=== PATIENT | male | born 1945 | race Caucasian/White ===

== ENCOUNTER → 2016-08-26 | Outpatient (REF) ==
[~2016-08-26] MED LIST: AMARYL1 MG PO; ASPI325T6 PO; ASPIRIN 32325 MG/TAB PO; ASPIRIN 81M81 MG/TA2 PO; ASPIRIN E.C. 8181 MG PO; CASODEX 50MG TA50 MG PO; CO Q-1010 MG PO; DUO-KAPS1 CAP PO; EPA/GLA1 SGL PO; FERROUS SU325 MG/TAB PO; FOLIC ACID0.4 MG PO; GERITOL COMPLET1 TAB PO; GLUCOPHAGE500 MG/TAB PO; IMDUR 30MG30 MG/TAB PO; LIPITOR 80MG80 MG PO; LOPRESSOR 225 MG/TAB PO; NITROSTAT0.4 MG/TAB SL; NORCO 325 MG-7.1 TAB PO; NORVASC2.5 MG PO; PLAVIX 75MG TAB75 MG PO; PROTONIX 40MG T40 MG PO; ROXICODONE 55 MG/TAB PO; TOPROL XL 25MG25 MG PO; VITAMIN C PURE500 MG PO; ZESTRIL 5MG5 MG PO
== END ==
LOC: ZLAB.WCH 10:12
DX: Z01.89 Encounter for other specified special examinations (principal)
CPT/HCPCS: G0103

== ENCOUNTER → 2016-10-09 | Outpatient (REF) | LOC: ZLAB.WCH 10:33 | DX: Z01.89 Encounter for other specified special examinations (principal) | CPT/HCPCS: G0103 ==

== ENCOUNTER → 2016-12-09 | Outpatient (REF) | LOC: ZLAB.WCH 13:19 | DX: Z01.89 Encounter for other specified special examinations (principal) | CPT/HCPCS: G0103 ==

== ENCOUNTER 2017-03-27 17:14 | Observation (INO) | payer MEDICARE, BC ==
[~2017-03-27] VITALS: Ht 175.3 cm; Wt 92.4 kg
[2017-03-27 17:40] LABS: BASO # 0.1 (0.0-0.2); BASO % 0.7 % (0.0-2.0); EOS # 0.4 (0.0-0.7); EOS % 5.4 % (0-4.0); GRAN # 4.8 (1.4-6.5); HEMATOCRIT 40.6 % (42.0-52.0); HEMOGLOBIN 13.8 g/dl (13.5-18.0); LYMPH # 1.7 (1.2-3.4); LYMPH % 22.4 % (20.0-51.0); MEAN CELL VOLUME 83 fl (80.0-100.0); MEAN CORPUSCULAR HEMOGLOBIN 28 pg (27.0-31.0); MEAN CORPUSCULAR HGB CONC 34 g/dl (33.0-37.0); MEAN PLATELET VOLUME 8.9 fl (7.4-10.4); MONO # 0.5 (0.1-0.6); MONO % 7.2 % (1.7-9.3); PLATELET COUNT 208 K/mm3 (130-400); RED BLOOD COUNT 4.89 M/mm3 (4.20-5.60); REDCELL DISTRIBUTION WIDTH-CV 12.9 % (11.5-14.5); WHITE BLOOD COUNT 7.5 K/mm3 (4.8-10.8)
[2017-03-27 17:44] LABS: INR 0.9 (0.8-3.0); PROTHROMBIN TIME 10.3 SECONDS (9.7-12.8)
[2017-03-27 17:47] LABS: PARTIAL THROMBOPLASTIN TIME 30.6 SECONDS (26.0-37.0)
[2017-03-27 17:48] LABS: ADJUSTED CALCIUM 9.1 mg/dL (8.4-10.2); ALANINE AMINOTRANSFERASE 25 U/L (21-72); ALKALINE PHOSPHATASE 81 U/L (50-136); ANION GAP 8 mmol/L (7-16); BILIRUBIN,TOTAL 1.5 mg/dL (0.0-1.0); BLOOD UREA NITROGEN 20 mg/dL (9-20); CALCIUM 9.1 mg/dL (8.4-10.2); CARBON DIOXIDE 23 mmol/L (22-30); CHLORIDE 106 mmol/L (98-107); CREATININE, serum 0.76 mg/dL (0.66-1.25); GLUCOSE 122 mg/dL (74-106); LIPASE 272 U/L (23-300); POTASSIUM 3.7 mmol/L (3.4-5.0); SODIUM 138 mmol/L (137-145); TOTAL PROTEIN 6.9 gm/dL (6.4-8.2)
[2017-03-27 17:59] LABS: B-TYPE NATRIURETIC PEPTIDE 69 pg/mL (0-125); TROPONIN-I < 0.012 ng/mL (0.000-0.034)
[2017-03-27 20:09] VITALS: BP 116/70; PULSE 53; TEMP 97.4
[2017-03-27 23:41] VITALS: BP 114/69; PULSE 55; TEMP 97.1
[2017-03-28] VITALS (8 sets, daily range): BP systolic 107–122; BP diastolic 52–70; PULSE 47–94; TEMP 97.4–98
== END 2017-03-28 17:31 | disposition home or self-care (01) ==
LOC: COL.ER 17:14 → MEDICAL 18:10
PROVIDERS: Emergency Medicine
DX: I25.10 Atherosclerotic heart disease of native coronary artery without angina pectoris (principal); I10 Essential (primary) hypertension; E11.9 Type 2 diabetes mellitus without complications; E78.5 Hyperlipidemia, unspecified; I25.2 Old myocardial infarction; K21.9 Gastro-esophageal reflux disease without esophagitis; Z79.84 Long term (current) use of oral hypoglycemic drugs; Z79.01 Long term (current) use of anticoagulants; Z95.5 Presence of coronary angioplasty implant and graft
CPT/HCPCS: C1760; C1894; G0378; J2250; J2930; J3010; Q9967

== ENCOUNTER → 2017-05-20 | Outpatient (REF) | LOC: ZLAB.WCH 08:49 | DX: Z01.89 Encounter for other specified special examinations (principal) ==

== ENCOUNTER → 2017-05-20 | Outpatient (REF) | LOC: ZLAB.WCH 18:05 | DX: Z01.89 Encounter for other specified special examinations (principal) | CPT/HCPCS: G0103 ==

== ENCOUNTER → 2018-01-14 | Outpatient (REF) | LOC: ZLAB.WCH 17:54 | DX: Z01.89 Encounter for other specified special examinations (principal) | CPT/HCPCS: G0103 ==

== ENCOUNTER 2018-04-14 11:38 | Day surgery (SDC) | payer MEDICARE, BC ==
[2018-04-14] VITALS (9 sets, daily range): BP systolic 106–128; BP diastolic 67–82; PULSE 54–65; TEMP 98
[~2018-04-14] VITALS: Ht 175.4 cm; Wt 92.3 kg
[2018-04-14] MEDS ORDERED: PREDNISONE20 MG PO (11:57)
[2018-04-14 13:36] LABS: HEMOGLOBIN 13.5 g/dl (13.5-18.0); MEAN CELL VOLUME 82 fl (80.0-100.0); MEAN CORPUSCULAR HEMOGLOBIN 28 pg (27.0-31.0); MEAN CORPUSCULAR HGB CONC 35 g/dl (33.0-37.0); MEAN PLATELET VOLUME 8.8 fl (7.4-10.4); PLATELET COUNT 208 K/mm3 (130-400); RED BLOOD COUNT 4.78 M/mm3 (4.20-5.60); REDCELL DISTRIBUTION WIDTH-CV 13.5 % (11.5-14.5)
[2018-04-14 13:46] LABS: PROTHROMBIN TIME 11.7 SECONDS (9.7-12.8)
[2018-04-14 14:03] LABS: CALCIUM 9.1 mg/dL (8.4-10.2); CREATININE, serum 0.73 mg/dL (0.66-1.25); POTASSIUM 3.6 mmol/L (3.4-5.0)
== END 2018-04-14 18:22 | disposition home or self-care (01) ==
LOC: COL.CAR 11:38
PROVIDERS: Internal Medicine Interventional Cardiology
DX: I25.110 Atherosclerotic heart disease of native coronary artery with unstable angina pectoris (principal); R60.0 Localized edema; I95.9 Hypotension, unspecified; Z79.82 Long term (current) use of aspirin; Z79.899 Other long term (current) drug therapy; Z79.02 Long term (current) use of antithrombotics/antiplatelets
CPT/HCPCS: J1200; J1644; J2250; J3010; J7512; Q9967

== ENCOUNTER → 2018-07-28 | Outpatient (REF) ==
[~2018-07-28] MED LIST changes: +PREDNISONE20 MG PO
== END ==
LOC: ZLAB.WCH 09:32
DX: Z01.89 Encounter for other specified special examinations (principal)
CPT/HCPCS: G0103

== ENCOUNTER → 2018-10-28 | Outpatient (REF) | LOC: ZLAB.WCH 15:59 | DX: Z01.89 Encounter for other specified special examinations (principal) | CPT/HCPCS: G0103 ==

== ENCOUNTER → 2021-03-01 | Outpatient (REF) | LOC: ZLAB.WCH 20:33 | DX: Z01.89 Encounter for other specified special examinations (principal) ==